=== PATIENT | male | born 1965 | race Caucasian/White ===

== ENCOUNTER → 2020-02-28 | Outpatient (CLI) | payer BC ==
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
== END ==
LOC: RAD 07:57
PROVIDERS: ATTEND Otolaryngology
DX: R13.10 Dysphagia, unspecified (principal); Y09 Assault by unspecified means
CPT/HCPCS: 70492; 82565

== ENCOUNTER → 2020-03-13 | Outpatient (CLI) | payer BC ==
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
== END ==
LOC: RAD 07:25
PROVIDERS: ATTEND Otolaryngology
DX: R13.10 Dysphagia, unspecified (principal)
CPT/HCPCS: 76536